=== PATIENT | male | born 1970 | race African-American/Black ===

== ENCOUNTER 2017-01-17 12:46 | Emergency (ER) | payer SELFPAY ==
[~2017-01-17] VITALS: Ht 177.8 cm; Wt 122.7 kg
[~2017-01-17 12:46] MED LIST: AMOXICILLIN500 MG PO; CLARITIN10 M1 PO; DOXYCYCL HYC100 M3 OR; METFORMIN500 MG PO; NAPROSYN500 MG OR; NO HOME MEDS
[2017-01-17] MEDS ORDERED: ULTRAM50 M1 PO (16:08)
[2017-01-17] MEDS ORDERED: FLEXERIL PO (16:08)
[2017-01-17 16:18] VITALS: BP 148/82
== END 2017-01-17 16:25 | disposition home or self-care (01) | DRG 552 ==
LOC: ED 12:46
DX: S16.1XXA Strain of muscle, fascia and tendon at neck level, initial encounter (principal); S33.5XXA Sprain of ligaments of lumbar spine, initial encounter; V64.5XXA Driver of heavy transport vehicle injured in collision with heavy transport vehicle or bus in traffic accident, initial encounter; Y92.411 Interstate highway as the place of occurrence of the external cause; Y93.89 Activity, other specified

== ENCOUNTER 2017-07-27 11:38 | Emergency (ER) | payer OTHER, BC ==
[~2017-07-27] VITALS: Ht 177.8 cm; Wt 100.0 kg
[~2017-07-27 11:38] MED LIST changes: +FLEXERIL PO; +ULTRAM50 M1 PO
[2017-07-27] MEDS ORDERED: TRAMADOL HYDROC50 MG PO (12:14)
[2017-07-27 12:21] VITALS: BP 140/70
== END 2017-07-27 12:30 | disposition home or self-care (01) | DRG 581 ==
LOC: ED 11:38
PROC: 0HQ1XZZ Repair Face Skin, External Approach (ICD-10-PCS; principal; 2017-07-27)
PROC: 0CQ Mouth and Throat, Repair (ICD-10-PCS; 2017-07-27)
DX: S01.411A Laceration without foreign body of right cheek and temporomandibular area, initial encounter (principal); S01.512A Laceration without foreign body of oral cavity, initial encounter; S02.5XXA Fracture of tooth (traumatic), initial encounter for closed fracture; W22.8XXA Striking against or struck by other objects, initial encounter; Y93.89 Activity, other specified; Y92.027 Garden or yard of mobile home as the place of occurrence of the external cause

== ENCOUNTER 2019-01-17 01:32 | Emergency (ER) | payer SELFPAY ==
[~2019-01-17] VITALS: Ht 177.8 cm; Wt 114.0 kg
[~2019-01-17 01:32] MED LIST changes: +TRAMADOL HYDROC50 MG PO
[2019-01-17] MEDS ORDERED: IBUPROFEN600 MG PO (02:35)
[2019-01-17 03:06] VITALS: BP 126/73
== END 2019-01-17 03:00 | disposition home or self-care (01) | DRG 914 ==
LOC: ED 01:32
DX: S49.91XA Unspecified injury of right shoulder and upper arm, initial encounter (principal); W11.XXXA Fall on and from ladder, initial encounter; Y93.39 Activity, other involving climbing, rappelling and jumping off; Y92.009 Unspecified place in unspecified non-institutional (private) residence as the place of occurrence of the external cause

== ENCOUNTER 2022-10-31 10:35 | Emergency (ER) | payer SELFPAY ==
[~2022-10-31] VITALS: Ht 177.8 cm; Wt 114.0 kg
[~2022-10-31 10:35] MED LIST changes: +IBUPROFEN600 MG PO
[2022-10-31 10:42] VITALS: BP 181/117
[2022-10-31 11:00] VITALS: BP 150/90
[2022-10-31 11:11] LABS: URINE BILIRUBIN - DIPSTICK NEGATIVE (NEGATIVE); URINE BLOOD DIPSTICK NEGATIVE (NEGATIVE); URINE COLOR YELLOW; URINE GLUCOSE - DIPSTICK >=1000 mg/dL (NEGATIVE); URINE KETONE NEGATIVE (NEGATIVE); URINE LEUK ESTERASE NEGATIVE (NEGATIVE); URINE PROTEIN - DIPSTICK NEGATIVE (NEG-TRACE); URINE SPECIFIC GRAVITY 1.025; URINE UROBILINOGEN - DIPSTICK 0.2 E.U./dL (0.2)
[2022-10-31 11:12] LABS: URINE NITRITE - DIPSTICK NEGATIVE (Negative)
[2022-10-31 11:21] LABS: BASO% 0.3 % (0-3); EOS% 1.4 % (0-8); HEMATOCRIT 39.5 % (39.0-50.0); HEMOGLOBIN 14.1 g/dl (14.0-18.0); IMMATURE GRANULOCYTES 0.2 % (0.0-5.0); LYMPH% 36.4 % (15-41); MEAN CELL VOLUME 89.2 fL CALC (80.0-100.0); MEAN CORPUSCULAR HGB 31.8 pG CALC (26.0-32.0); MEAN CORPUSCULAR HGB CONC 35.7 g/dL CAL (32.0-36.0); MONO% 5.6 % (2-13); NEUT# 3.72 thou/uL (1.82-7.42); NEUT% 56.1 % (42-76); RED BLOOD COUNT 4.43 mill/uL (4.70-6.10); RED CELL DISTRI WIDTH 11.5 % (11.5-15.5)
[2022-10-31 11:25] LABS: ALBUMIN 4.6 g/dL (3.2-5.0); ALKALINE PHOSPHATASE 73 u/l (38-126); ANION GAP 13 (6-22 (CALC)); BILIRUBIN, TOTAL 0.8 mg/dL (0.0-1.4); BUN 12 mg/dL (9-20); BUN/CREATININE RATIO 13 (12-20 (CALC)); CARBON DIOXIDE 26 mmol/l (22-30); CHLORIDE 101 mmol/l (95-108); CREATININE 0.9 mg/dL (0.7-1.3); GFR FOR AFR.AMER. > 60 ML/MIN (>=60 (CALC)); GFR OTHER RACES > 60 ML/MIN (>=60 (CALC)); POTASSIUM 4.3 mmol/l (3.5-5.1); SGOT/AST 33 u/l (17-59); SODIUM 136 mmol/l (137-146); TOTAL PROTEIN 7.9 g/dL (6.3-8.2)
[2022-10-31 11:30] VITALS: BP 141/78
[2022-10-31] MEDS ORDERED: METFORMIN HCL1000 MG PO (11:55)
[2022-10-31 12:00] VITALS: BP 112/57
[2022-10-31 12:21] VITALS: BP 112/57
== END 2022-10-31 12:32 | disposition home or self-care (01) | DRG 639 ==
LOC: ED 10:35
PROVIDERS: Family Medicine
DX: E11.65 Type 2 diabetes mellitus with hyperglycemia (principal); Z79.84 Long term (current) use of oral hypoglycemic drugs